=== PATIENT | female | born 1965 | race Caucasian/White ===

== ENCOUNTER → 2017-01-21 | Outpatient (CLI) | payer MEDICAID ==
--- NOTE | 2017-01-22 15:18 | RADIOLOGY REPORT PS360 ---
History and Indications: Congestive heart failure, hypertension, hyperlipidemia, family history, chest pain and shortness of breath Procedure: Patient exercised on Gunnar protocol 6 metastases and 30 seconds, resting heart rate was 68 bpm resting blood pressure 135/82, with exercise maximum heart rate achieved was 1 50 bpm which is 88% of the maximum predicted heart rate and a blood pressure was 210/90. Test was started due to shortness of breath patient denied complained of chest pain. Patient has adequate exercise capacity achieved 7mets of workload on treadmill, the blood pressure response to exercise was hypertensive. Electrocardiogram: Resting electrocardiogram showed sinus rhythm, with exercise there is less than 1.[address] segment depression noted from the baseline EKG. The EKG portion of the exercise Myoview is negative for ischemia. Cardiac stress and resting SPECT images: Cardiac stress and rest SPECT images were obtained using technetium 99 Myoview 10.1 mCi at rest and 31.3 mCi at stress, gated SPECT further analysis of segmental wall motion and calculation ejection fraction also done. Cardiac stress and rest SPECT images show mild fixed defect in the inferior wall with normal contractility in the gated SPECT is likely secondary to soft tissue attenuation, no reversible ischemia seen, computer derived ejection fraction 54% with no obvious regional wall motion abnormality, right ventricle is mildly enlarged with normal contractility. Conclusion: 1. The EKG portion of the exercise Myoview is negative for ischemia, patient has adequate exercise capacity achieved 7mets of workload on treadmill, the blood pressure response to exercise was hypertensive, there was no exercise-induced chest discomfort. 2. No obvious scintigraphic evidence of reversible ischemia seen, computer derived ejection fraction is 54% with no obvious regional wall motion abnormality, right ventricle is mildly enlarged with normal contractility.
== END ==
LOC: RAD 06:52
DX: R07.9 Chest pain, unspecified (principal)
CPT/HCPCS: A9502